=== PATIENT | male | born 1960 | race Caucasian/White ===

== ENCOUNTER → 2020-03-26 10:25 | Outpatient (CLI) | payer OTHER, SELFPAY ==
[2020-03-27 13:07] LABS: COVID19 Sendout Not Detected (Not Detect)
== END ==
PROVIDERS: PCP Physician Assistant; Visit Provider Physician Assistant
DX: Z11.59 Encounter for screening for other viral diseases (principal)
CPT/HCPCS: 87635

== ENCOUNTER → 2021-08-20 13:04 | Outpatient (CLI) | payer OTHER, SELFPAY ==
--- NOTE | 2021-08-20 | DI.MRI.S_ITS ---
PROCEDURE: MR CERVICAL SPINE WO CON INDICATIONS: Cervicalgia TECHNIQUE: Noncontrast sagittal T1 spin echo and T2 fast spin echo, sagittal STIR, foraminal oblique sagittal T2 fast spin echo, and axial gradient echo or T2 fast spin echo through the cervical spine. COMPARISON: None. FINDINGS: Image quality: Partially degraded by motion artifact. Alignment and Curvature: There is loss of normal cervical lordosis. Mild grade 1 retrolisthesis C6 on C7. Bone Marrow: Marrow demonstrates normal overall signal. Mild reactive signal throughout the endplates of the cervical and upper thoracic spine. Spinal Cord: Visualized spinal cord has normal size and signal. No cerebellar tonsillar herniation. Paraspinous Soft Tissues: No paravertebral masses. Prevertebral soft tissues are normal in thickness. C2-C3: Congenital canal stenosis. Moderate disc desiccation. Mild facet and uncovertebral hypertrophy. Mild canal stenosis. Mild bilateral foraminal stenosis. C3-C4: Congenital canal stenosis. Moderate disc desiccation. Mild diffuse disc bulge. Moderate right and mild left facet and uncovertebral hypertrophy. Moderate canal stenosis. Severe right and moderate left foraminal stenosis. Right C4 nerve root compression. C4-C5: Moderate disc desiccation. Mild diffuse disc bulge. Congenital canal stenosis. Moderate right and mild left facet and uncovertebral hypertrophy. Moderate to severe canal stenosis. Severe right and moderate left foraminal stenosis. Right C5 nerve root compression C5-C6: Congenital canal stenosis. Mild disc height loss and desiccation. Mild diffuse disc bulge with superimposed right paracentral protrusion. Mild facet and uncovertebral hypertrophy. Severe canal stenosis with mild cord flattening. Moderate bilateral foraminal stenosis. C6-C7: Moderate disc height loss and desiccation. Mild diffuse disc bulge. Congenital canal stenosis. Mild facet and uncovertebral hypertrophy bilaterally. Moderate to severe canal stenosis. Minimal cord flattening. Moderate right and severe left foraminal stenosis. Left C7 nerve root compression. C7-T1: Mild disc height loss and desiccation. Mild diffuse disc bulge. Mild facet and uncovertebral hypertrophy bilaterally. Mild canal stenosis. Mild bilateral foraminal stenosis. IMPRESSION: 1. Diffuse congenital canal stenosis with superimposed disc and facet disease, as well as uncovertebral hypertrophy. 2. Multilevel canal stenoses, worst at C5-C6 and C6-C7, where there is minimal cord flattening. Moderate to severe canal stenosis at C4-C5 is present. 3. Multilevel foraminal stenoses, worst at C3-C4, C4-C5, and C6-C7, where there is intraforaminal nerve root compression. Recommend correlation with clinical symptoms to ascertain relevance of these findings. Dictated by: Precious White M.D. on 08/20/2021 at 15:10 Approved by: Precious White M.D. on 08/20/2021 at 16:58
== END ==
PROVIDERS: PCP Physician Assistant; Referring Provider Physical Medicine & Rehabilitation Pain Medicine; Visit Provider Physical Medicine & Rehabilitation Pain Medicine
DX: M48.02 Spinal stenosis, cervical region (principal); M50.21 Other cervical disc displacement, high cervical region; M47.812 Spondylosis without myelopathy or radiculopathy, cervical region
CPT/HCPCS: 72141

== ENCOUNTER 2024-03-23 09:42 | Emergency (ER) | payer OTHER, SELFPAY ==
[2024-03-23] VITALS (14 sets, daily range): BP systolic 134–154; BP diastolic 71–84; PULSE 61–88; RESP 16–18; TEMP 36.4; O2SAT 96–100; BMI 23.0
--- NOTE | 2024-03-23 11:29 | DI.MRI.S_ITS ---
PROCEDURE: MR HEAD/BRAIN WO/W CON INDICATIONS: Extreme right-sided head discomfort and pain neck injury, un TECHNIQUE: Noncontrast axial T1 spin echo, axial T2 fast spin echo, sagittal and axial FLAIR, coronal T2 fast spin echo, axial gradient echo, axial diffusion and ADC through the brain. After the administration of contrast, axial and coronal and sagittal T1 spin echo with fat saturation through the brain. COMPARISON: [facility], MR, MR CERVICAL SPINE WO CON, 03/23/2024, 12:01. FINDINGS: Image quality: Diagnostic, with note made of motion artifact. CSF spaces: Basal cisterns are patent. No extra-axial fluid collections. Ventricles are normal in size and shape. Brain: No midline shift. No intracranial bleeds or masses. No abnormal intracranial enhancement. There is cerebral volume loss for age. There is periventricular white matter chronic small vessel ischemic change. The brainstem appears normal. Diffusion-weighted images demonstrate no acute infarct. No chronic ischemic insults. Normal intravascular flow voids are present. Skull and face: Calvarial marrow is normal in signal. Orbits appear normal. Sinuses: There is mild mucosal thickening within the right maxillary sinus. Sinuses and mastoids otherwise appear clear. IMPRESSION: No findings of acute or subacute infarction can be seen. No masses or abnormal enhancement can be seen. No acute intracranial process is seen. No acute intracranial hemorrhage is seen. Dictated by: Klaus Rajan M.D. on 03/23/2024 at 12:29 Approved by: Klaus Rajan M.D. on 03/23/2024 at 12:30
--- NOTE | 2024-03-23 11:29 | DI.MRI.S_ITS ---
PROCEDURE: MR CERVICAL SPINE WO CON INDICATIONS: Severe headache, unequal pupils. TECHNIQUE: Noncontrast sagittal T1 spin echo and T2 fast spin echo, sagittal STIR, foraminal oblique sagittal T2 fast spin echo, and axial gradient echo or T2 fast spin echo through the cervical spine. COMPARISON: [facility], MR, MR HEAD/BRAIN WO/W CON, 03/23/2024, 12:17. [facility], MR, MR CERVICAL SPINE WO CON, 08/20/2021, 13:26. FINDINGS: Image quality: Excellent. Alignment and Curvature: There is straightening of the normal cervical lordosis. No focal AP alignment abnormality is seen. Bone Marrow: Marrow demonstrates normal overall signal. Spinal Cord: Visualized spinal cord has normal size and signal. No cerebellar tonsillar herniation. Paraspinous Soft Tissues: No paravertebral masses. Prevertebral soft tissues are normal in thickness. C2-C3: The disc height is well-preserved. Loss of disc signal is seen at this level. A mild degree of generalized disc osteophyte complex is seen. Mild facet joint hypertrophy is seen. There is mild right-sided and no left-sided neural foraminal narrowing. No significant central canal narrowing is seen. When comparison is made with the prior images, these findings are similar. C3-C4: The disc height is well-preserved. Loss of disc signal is seen at this level. Mild to moderate disc osteophyte complex is seen, which is eccentric to the right. There is at least moderate right-sided and moderate left-sided facet hypertrophy. There is moderate to severe right-sided and there is moderate left-sided neural foraminal narrowing. No significant central canal narrowing is seen at this level. There is slight progression compared to the prior. C4-C5: The disc height is well-preserved. Loss of disc signal is seen at this level. Mild to moderate disc osteophyte complex is seen. At least moderate facet hypertrophy can be seen. There is at least moderate bilateral neural foraminal narrowing seen. Mild central canal narrowing is seen, with mild mass effect upon the ventral spinal cord. These imaging findings have progressed compared to the prior study. C5-C6: Mild loss of disc height is seen. Loss of disc signal is seen. Moderate generalized disc osteophyte complex is seen. There is a mild central/right disc osteophyte protrusion. There is at least moderate right-sided and moderate left-sided facet hypertrophy. There is at least moderate bilateral neural foraminal narrowing, right worse than left. Mild to moderate central canal narrowing is seen, with mild mass effect upon the ventral spinal cord. Compared to 202, the previously seen disc protrusion is slightly regressed. However, the overall degree of central canal narrowing appears worse than on the prior examination. C6-C7: Moderate loss of disc height is seen. Loss of disc signal is seen. Moderate generalized disc osteophyte complex is seen. Moderate facet joint hypertrophy is seen. There is moderate to severe left-sided and at least moderate right-sided neural foraminal narrowing. Moderate central canal narrowing is seen. When comparison is made with the prior images, these findings are similar. C7-T1: The disc height and disk signal are well-preserved. A mild degree of generalized disc osteophyte complex is seen. [id number] facet hypertrophy is seen. There is moderate left-sided and no right-sided neural foraminal narrowing. No central canal narrowing is seen. When comparison is made with the prior images, these findings are similar. IMPRESSION: No jacqueline acute abnormality is seen. Multiple levels of cervical spine degenerative change can be seen, which are overall mildly progressed compared to the 2021 examination. Dictated by: Klaus Rajan M.D. on 03/23/2024 at 12:24 Approved by: Klaus Rajan M.D. on 03/23/2024 at 12:29
--- NOTE | 2024-03-23 11:43 | ED_ITS ---
HPI - Neck Pain/Injury <Emily Osorio PA-C - Last Filed: 03/24/24 10:44> General Chief Complaint: Neck Pain/Injury Stated Complaint: Nerve pain in neck . Time Seen by Provider: 03/23/24 11:13 History of Present Illness HPI Narrative: Patient is a very pleasant 63-year-old male that presents to the emergency room department today with his . Patient has a extensive history of neck related issues. Previous C3 fracture, was in a halo for an extended period of time no surgical intervention due to a skiing accident. Patient states it he does have flare-ups of discomfort and pain associated musculoskeletal tenderness, stiffness, limited range of motion with then discomfort and pain across his aponeurosis into his scalp, causing quite a bit of discomfort and pain. He usually treats this discomfort and pain with modality of muscle relaxers, topica l preparations, oral medications, massage slow range of motion, ice, heat. He also recently has been seen and had trigger point injections which he states did not help with the discomfort and pain. He says that he is very sensitive to nonsteroidals so tends not to use oral nonsteroidals. He has never had a course of prednisone. The patient states that on Monday of this week he went in for an endoscopy, he advised them that he had neck issues and had had a previous neck injury and ask them to be extremely careful of the positioning of his neck during the procedure. He feels that perhaps they did not positioned correctly and since Monday he has had extreme right-sided neck discomfort and pain along the trapezius area into the aponeurosis, down into the sternocleidomastoid muscle. This is comfort and pain has escalated even know he has used all of his home modalities with limited relief. Initially the pain was a 6/10, now currently it has a 12 due to the fact that he is in tears. He has lancing pain along his neck and into the back of his scalp underneath his right ear and into the right side of his face. Patient has a history of glaucoma, but has never had unequal pupils and today he has unequal pupils. Patient denies any type of recent injury, trauma or fall. He denies any blurred vision, or changes in his vision. He does advocate for being unstable in his gait. His denies any recent falls, syncope, changes in his mentation, or slurred speech. The patient has been mildly nauseous. No vomiting, no diarrhea, no urinary symptoms. No weakness, numbness or tingling to the upper or lower extremities. No weakness to the extremities. His medications have been reviewed, his allergies have been reviewed. Related Data Home Medications Medication Instructions Recorded Confirmed latanoprost 0.005 % eye drops 1 drp EYE-LEFT ONCE PM 03/23/24 03/23/24 loratadine 10 mg tablet 10 mg PO DAILY 03/23/24 03/23/24 rabeprazole 20 mg tablet,delayed 20 mg PO DAILY 03/23/24 03/23/24 release timolol maleate 0.5 % eye drops drp EYE-BOTH 03/23/24 03/23/24 Allergies Allergy/AdvReac Type Severity Reaction Status Date / Time erythromycin base Allergy Verified 03/23/24 10:10 NSAIDS (Non-Steroidal AdvReac Verified 03/23/24 10:10 Anti-Inflamma zolpidem [From Ambien] AdvReac Verified 03/23/24 11:45 Review of Systems <Emily Osorio PA-C - Last Filed: 03/24/24 10:44> Review of Systems Narrative: Negative except as above Eyes Comments: Pain behind the right eye Lancing pain across the right side of the face ENT Comments: Pain across the right side of his face Musculoskeletal Comments: Pain in the right side of his neck, right trapezius, right sternocleidomastoid muscle, right side of his aponeurosis and fascia into his scalp and into his head and neck. Neurologic Comments: Headache and pain across the right side of his head and scalp and behind his right ear Exam <Emily Osorio PA-C - Last Filed: 03/24/24 10:44> Initial Vital Signs Initial Vital Signs: Vital Signs Temperature 97.6 F 03/23/24 10:05 Pulse Rate 61 03/23/24 10:05 Respiratory Rate 16 03/23/24 10:05 Blood Pressure 139/81 03/23/24 10:05 Pulse Oximetry 96 03/23/24 10:05 Oxygen Delivery Method Room Air 03/23/24 10:05 Reviewed Const General: cooperative, healthy appearing, acute distress, in distress and anxious [facility] Head: normal to inspection, normocephalic, atraumatic, No abrasion, No hematoma, scalp tenderness and No periorbital ecchymosis Ears: hearing grossly normal bilaterally, external ears normal, mastoids normal, no periauricular adenopathy and no external ear abnormalities Eyes General: Yes appearance normal, both eyes and all related structures Conjunctivae: other (Red and irritated) Pupils: irregular and pupil size (The left side is 2 mm and slow to react, the right side is 3 mm and slow to) Neck Neck: normal visual inspection, No full ROM (Pain with palpation and range of motion), supple, No anterior neck swelling, No lymphadenopathy, No midline defor mity, tender, No submandibular swelling and other (Pain over the sternocleidomastoid muscle and trapezius and along the jawlin) Resp Auscultation: clear to auscultation bilaterally, no crackles, lung sounds not diminished, no rales, no rhonchi, no wheezes and no rubs Tactile Fremitus: tactile fremitus absent Cardio Rate: regular rate Rhythm: regular rhythm Heart Sounds: S1 normal and S2 normal Back/Spine/Pelvis Cervical Spine: No cervical ROM normal (Decreased due to discomfort and pain), pain with cervical ROM, cervical spasm, No step off deformity and cervical ROM abnormal (Due to pain) Skin Other: Warm pink and dry Neuro General: patient alert, patient awake, patient oriented x3, oriented and no meningeal signs Cognition: normal cognition Speech: speech normal Gait: normal gait Extrem Other: Range of motion, strength, pulses, cap refill in the upper and lower extremities is preserved. NIH score 0 Psych Other: Patient's appearance, mental status, speech, movement, mood, affect, attitude, thought process, thought content, judgment is all within normal limits. <Kit Altamirano MD - Last Filed: 03/31/24 02:41> Initial Vital Signs Initial Vital Signs: Vital Signs Temperature 97.6 F 03/23/24 10:05 Pulse Rate 61 03/23/24 10:05 Respiratory Rate 16 03/23/24 10:05 Blood Pressure 139/81 03/23/24 10:05 Pulse Oximetry 96 03/23/24 10:05 Oxygen Delivery Method Room Air 03/23/24 10:05 <Ann Bray DO - Last Filed: 03/24/24 00:54> Initial Vital Signs Initial Vital Signs: Vital Signs Temperature 97.6 F 03/23/24 10:05 Pulse Rate 61 03/23/24 10:05 Respiratory Rate 16 03/23/24 10:05 Blood Pressure 139/81 03/23/24 10:05 Pulse Oximetry 96 03/23/24 10:05 Oxygen Delivery Method Room Air 03/23/24 10:05 Scores <Emily Osorio PA-C - Last Filed: 03/24/24 10:44> NIH Stroke Scale Citation:: 0 Course <Emily Osorio PA-C - Last Filed: 03/24/24 10:44> Orders Ordered: Discontinued Medications Hydrocodone Bitart/Acetaminophen (Hydrocodone/Acet 5/325 Tablet) 1 tab PO NOW ONE Stop: 03/23/24 18:58 Last Admin: 03/23/24 19:00 Dose: 1 tab Documented By: HARJINDER Acetazolamide (Acetazolamide 250 Mg Tablet) 500 mg PO NOW ONE Stop: 03/23/24 18:28 Last Admin: 03/23/24 18:57 Dose: 500 mg Documented By: HARJINDER Fluorescein Sodium (Fluorescein 1 Mg Strip) 1 mg EYE-BOTH NOW ONE Stop: 03/23/24 17:12 Last Admin: 03/23/24 17:16 Dose: 1 mg Documented By: HARJINDER Hydromorphone HCl (Hydromorphone 1 Mg Inj) 0.5 mg IV NOW ONE Stop: 03/23/24 11:35 Last Admin: 03/23/24 11:50 Dose: 0.5 mg Documented By: MAGAN Hydromorphone HCl (Hydromorphone 1 Mg Inj) 0.5 mg IV NOW ONE Stop: 03/23/24 14:53 Last Admin: 03/23/24 15:02 Dose: 0.5 mg Documented By: HARJINDER Ondansetron HCl (Ondansetron 4 Mg/2 Ml Inj) 4 mg IV NOW ONE Stop: 03/23/24 11:35 Last Admin: 03/23/24 11:50 Dose: 4 mg Documented By: MAGAN Ondansetron HCl (Ondansetron 4 Mg/2 Ml Inj) 4 mg IV NOW ONE Stop: 03/23/24 18:13 Last Admin: 03/23/24 18:19 Dose: 4 mg Documented By: HARJINDER Proparacaine HCl (Proparacaine 0.5% Ophth Yadi) 1 drops EYE-BOTH NOW ONE Stop: 03/23/24 17:12 Last Admin: 03/23/24 17:16 Dose: 1 drop Documented By: HARJINDER Vital Signs Vital signs: Vital Signs - 8 hr 03/23/24 17:00 03/23/24 17:00 03/23/24 17:30 Pulse Rate 68 67 Blood Pressure 150/84 H Pulse Oximetry 100 98 03/23/24 17:30 03/23/24 18:00 03/23/24 18:00 Pulse Rate 74 Blood Pressure 153/79 H 149/80 H Pulse Oximetry 100 03/23/24 18:12 03/23/24 18:12 03/23/24 18:30 Pulse Rate 88 76 Blood Pressure 147/74 H Pulse Oximetry 96 99 03/23/24 18:30 03/23/24 19:00 Pulse Rate Blood Pressure 134/71 Pulse Oximetry 99 Reviewed <Kit Altamirano MD - Last Filed: 03/31/24 02:41> Orders Ordered: Discontinued Medications Hydrocodone Bitart/Acetaminophen (Hydrocodone/Acet 5/325 Tablet) 1 tab PO NOW ONE Stop: 03/23/24 18:58 Last Admin: 03/23/24 19:00 Dose: 1 tab Documented By: HARJINDER Acetazolamide (Acetazolamide 250 Mg Tablet) 500 mg PO NOW ONE Stop: 03/23/24 18:28 Last Admin: 03/23/24 18:57 Dose: 500 mg Documented By: HARJIDNER Fluorescein Sodium (Fluorescein 1 Mg Strip) 1 mg EYE-BOTH NOW ONE Stop: 03/23/24 17:12 Last Admin: 03/23/24 17:16 Dose: 1 mg Documented By: HARJINDER Hydromorphone HCl (Hydromorphone 1 Mg Inj) 0.5 mg IV NOW ONE Stop: 03/23/24 11:35 Last Admin: 03/23/24 11:50 Dose: 0.5 mg Documented By: MAGAN Hydromorphone HCl (Hydromorphone 1 Mg Inj) 0.5 mg IV NOW ONE Stop: 03/23/24 14:53 Last Admin: 03/23/24 15:02 Dose: 0.5 mg Documented By: HARJINDER Ondansetron HCl (Ondansetron 4 Mg/2 Ml Inj) 4 mg IV NOW ONE Stop: 03/23/24 11:35 Last Admin: 03/23/24 11:50 Dose: 4 mg Documented By: MAGAN Ondansetron HCl (Ondansetron 4 Mg/2 Ml Inj) 4 mg IV NOW ONE Stop: 03/23/24 18:13 Last Admin: 03/23/24 18:19 Dose: 4 mg Documented By: HARJINDER Proparacaine HCl (Proparacaine 0.5% Ophth Yadi) 1 drops EYE-BOTH NOW ONE Stop: 03/23/24 17:12 Last Admin: 03/23/24 17:16 Dose: 1 drop Documented By: HARJINDER Vital Signs Vital signs: Vital Signs - 8 hr 03/23/24 17:00 03/23/24 17:00 03/23/24 17:30 Pulse Rate 68 67 Blood Pressure 150/84 H Pulse Oximetry 100 98 03/23/24 17:30 03/23/24 18:00 03/23/24 18:00 Pulse Rate 74 Blood Pressure 153/79 H 149/80 H Pulse Oximetry 100 03/23/24 18:12 03/23/24 18:12 03/23/24 18:30 Pulse Rate 88 76 Blood Pressure 147/74 H Pulse Oximetry 96 99 03/23/24 18:30 03/23/24 19:00 Pulse Rate Blood Pressure 134/71 Pulse Oximetry 99 <Ann Bray, - Last Filed: 03/24/24 00:54> Orders Ordered: Discontinued Medications Hydrocodone Bitart/Acetaminophen (Hydrocodone/Acet 5/325 Tablet) 1 tab PO NOW ONE Stop: 03/23/24 18:58 Last Admin: 03/23/24 19:00 Dose: 1 tab Documented By: HARJINDER Acetazolamide (Acetazolamide 250 Mg Tablet) 500 mg PO NOW ONE Stop: 03/23/24 18:28 Last Admin: 03/23/24 18:57 Dose: 500 mg Documented By: HARJINDER Fluorescein Sodium (Fluorescein 1 Mg Strip) 1 mg EYE-BOTH NOW ONE Stop: 03/23/24 17:12 Last Admin: 03/23/24 17:16 Dose: 1 mg Documented By: HARJINDER Hydromorphone HCl (Hydromorphone 1 Mg Inj) 0.5 mg IV NOW ONE Stop: 03/23/24 11:35 Last Admin: 03/23/24 11:50 Dose: 0.5 mg Documented By: MAGAN Hydromorphone HCl (Hydromorphone 1 Mg Inj) 0.5 mg IV NOW ONE Stop: 03/23/24 14:53 Last Admin: 03/23/24 15:02 Dose: 0.5 mg Documented By: HARJINDER Ondansetron HCl (Ondansetron 4 Mg/2 Ml Inj) 4 mg IV NOW ONE Stop: 03/23/24 11:35 Last Admin: 03/23/24 11:50 Dose: 4 mg Documented By: MAGAN Ondansetron HCl (Ondansetron 4 Mg/2 Ml Inj) 4 mg IV NOW ONE Stop: 03/23/24 18:13 Last Admin: 03/23/24 18:19 Dose: 4 mg Documented By: HARJINDER Proparacaine HCl (Proparacaine 0.5% Ophth Yadi) 1 drops EYE-BOTH NOW ONE Stop: 03/23/24 17:12 Last Admin: 03/23/24 17:16 Dose: 1 drop Documented By: HARJINDER Vital Signs Vital signs: Vital Signs - 8 hr 03/23/24 17:00 03/23/24 17:00 03/23/24 17:30 Pulse Rate 68 67 Blood Pressure 150/84 H Pulse Oximetry 100 98 03/23/24 17:30 03/23/24 18:00 03/23/24 18:00 Pulse Rate 74 Blood Pressure 153/79 H 149/80 H Pulse Oximetry 100 03/23/24 18:12 03/23/24 18:12 03/23/24 18:30 Pulse Rate 88 76 Blood Pressure 147/74 H Pulse Oximetry 96 99 03/23/24 18:30 03/23/24 19:00 Pulse Rate Blood Pressure 134/71 Pulse Oximetry 99 MDM - Neck Pain/Injury <Emily Osorio PA-C - Last Filed: 03/24/24 10:44> [facility] Narrative Medical decision making narrative: This patient was initially seen in the [facility] area due to the complexity of the patient's physical complaints and physical exam is and abnormalities associated with his pupillary response in the complex history, I felt the patient needed to have an MRI of his neck, head and brain. Due to the fact that he need an MRI this patient was then transferred over to the main ED. Sign-out was given to the attending. This patient was transferred over to the ED. IV was established and [facility] 4 mg of IV Zofran 0.5 mg of IV Dilaudid for pain MRI with and without of the head and brain MRI of the cervical spine without was ordered Patient then taken to room 6 after his MRI Sign out to Dr. Altamirano <Kit Altamirano MD - Last Filed: 03/31/24 02:41> Imaging Data MRI brain: Radiologist's Impression: [address] [address] Magnetic Resonance Report Signed Patient: Jared Henderson MR#: [id number] : 1960 Acct:[id number] Age/Sex: 63 / M Date of Service: 03/23/24 Loc: ED Accession Number: [id number] Procedure: MR head/brain wo/w con Ordering Provider: Emily Osorio PA-C PROCEDURE: MR HEAD/BRAIN WO/W CON INDICATIONS: Extreme right-sided head discomfort and pain neck injury, un TECHNIQUE: Noncontrast axial T1 spin echo, axial T2 fast spin echo, sagittal and axial FLAIR, coronal T2 fast spin echo, axial gradient echo, axial diffusion and ADC through the brain. After the administration of contrast, axial and coronal and sagittal T1 spin echo with fat saturation through the brain. COMPARISON: [facility], MR, MR CERVICAL SPINE WO CON, 03/23/2024, 12:01. FINDINGS: Image quality: Diagnostic, with note made of motion artifact. CSF spaces: Basal cisterns are patent. No extra-axial fluid collections. Ventricles are normal in size and shape. Brain: No midline shift. No intracranial bleeds or masses. No abnormal intracranial enhancement. There is cerebral volume loss for age. There is periventricular white matter chronic small vessel ischemic change. The brainstem appears normal. Diffusion-weighted images demonstrate no acute infarct. No chronic ischemic insults. Normal intravascular flow voids are present. Skull and face: Calvarial marrow is normal in signal. Orbits appear normal. Sinuses: There is mild mucosal thickening within the right maxillary sinus. Sinuses and mastoids otherwise appear clear. IMPRESSION: No findings of acute or subacute infarction can be seen. No masses or abnormal enhancement can be seen. No acute intracranial process is seen. No acute intracranial hemorrhage is seen. Dictated by: Klaus Rajan M.D. on 03/23/2024 at 12:29 Approved by: Klaus Rajan M.D. on 03/23/2024 at 12:30 MRI cervical spine: Radiologist's Impression: [address] [address] Magnetic Resonance Report Signed Patient: Jared Henderson MR#: [id number] : 1960 Acct:[id number] Age/Sex: 63 / M Date of Service: 03/23/24 Loc: ED Accession Number: [id number] Procedure: MR cervical spine wo con Ordering Provider: Emily Osorio PA-C PROCEDURE: MR CERVICAL SPINE WO CON INDICATIONS: Severe headache, unequal pupils. TECHNIQUE: Noncontrast sagittal T1 spin echo and T2 fast spin echo, sagittal STIR, foraminal oblique sagittal T2 fast spin echo, and axial gradient echo or T2 fast spin echo through the cervical spine. COMPARISON: [facility], MR, MR HEAD/BRAIN WO/W CON, 03/23/2024, 12:17. [facility], MR, MR CERVICAL SPINE WO CON, 08/20/2021, 13:26. FINDINGS: Image quality: Excellent. Alignment and Curvature: There is straightening of the normal cervical lordosis. No focal AP alignment abnormality is seen. Bone Marrow: Marrow demonstrates normal overall signal. Spinal Cord: Visualized spinal cord has normal size and signal. No cerebellar tonsillar herniation. Paraspinous Soft Tissues: No paravertebral masses. Prevertebral soft tissues are normal in thickness. C2-C3: The disc height is well-preserved. Loss of disc signal is seen at this level. A mild degree of generalized disc osteophyte complex is seen. Mild facet joint hypertrophy is seen. There is mild right-sided and no left-sided neural foraminal narrowing. No significant central canal narrowing is seen. When comparison is made with the prior images, these findings are similar. C3-C4: The disc height is well-preserved. Loss of disc signal is seen at this level. Mild to moderate disc osteophyte complex is seen, which is eccentric to the right. There is at least moderate right-sided and moderate left-sided facet hypertrophy. There is moderate to severe right-sided and there is moderate left-sided neural foraminal narrowing. No significant central canal narrowing is seen at this level. There is slight progression compared to the prior. C4-C5: The disc height is well-preserved. Loss of disc signal is seen at this level. Mild to moderate disc osteophyte complex is seen. At least moderate facet hypertrophy can be seen. There is at least moderate bilateral neural foraminal narrowing seen. Mild central canal narrowing is seen, with mild mass effect upon the ventral spinal cord. These imaging findings have progressed compared to the prior study. C5-C6: Mild loss of disc height is seen. Loss of disc signal is seen. Moderate generalized disc osteophyte complex is seen. There is a mild central/right disc osteophyte protrusion. There is at least moderate right-sided and moderate left-sided facet hypertrophy. There is at least moderate bilateral neural foraminal narrowing, right worse than left. Mild to moderate central canal narrowing is seen, with mild mass effect upon the ventral spinal cord. Compared to 2021, the previously seen disc protrusion is slightly regressed. However, the overall degree of central canal narrowing appears worse than on the prior examination. C6-C7: Moderate loss of disc height is seen. Loss of disc signal is seen. Moderate generalized disc osteophyte complex is seen. Moderate facet joint hypertrophy is seen. There is moderate to severe left-sided and at least moderate right-sided neural foraminal narrowing. Moderate central canal narrowing is seen. When comparison is made with the prior images, these findings are similar. C7-T1: The disc height and disk signal are well-preserved. A mild degree of generalized disc osteophyte complex is seen. [id number] facet hypertrophy is seen. There is moderate left-sided and no right-sided neural foraminal narrowing. No central canal narrowing is seen. When comparison is made with the prior images, these findings are similar. IMPRESSION: No jacquelnie acute abnormality is seen. Multiple levels of cervical spine degenerative change can be seen, which are o verall mildly progressed compared to the 2021 examination. Dictated by: Klaus Rajan M.D. on 03/23/2024 at 12:24 Approved by: Klaus Rajan M.D. on 03/23/2024 at 12:29 [facility] Narrative Medical decision making narrative: This patient was initially seen in the [facility] area due to the complexity of the patient's physical complaints and physical exam is and abnormalities associated with his pupillary response in the complex history, I felt the patient needed to have an MRI of his neck, head and brain. Due to the fact that he need an MRI this patient was then transferred over to the main ED. Sign-out was given to the attending. This patient was transferred over to the ED. IV was established and [facility] 4 mg of IV Zofran 0.5 mg of IV Dilaudid for pain MRI with and without of the head and brain MRI of the cervical spine without was ordered Patient then taken to room 6 after his MRI Sign out to Dr Altamirano 03/22/2024, 1330, Adarsh. Sign-out from JASMIN Osorio. Sent here from fast track due to complexity of illness and reported need for multiple long-duration imaging studies. MRI brain and cervical spine studies have been ordered. Triage complaint of neck pain. 63-year-old male with history of C3 fracture prior halo, chronic neck pain for which he is treated with oral analgesics and sometimes massage, previous trigger point injections, apparently can not take nonsteroidals, this last Monday patient underwent endoscopy, after the endoscopy had increased neck pain. Since yesterday morning he has right-sided eye tearing and discomfort, history of glaucoma, some cloudy vision since yesterday morning as well. Right pupil dilated compared to the left, apparently this is not usual for the patient, referred to main ED for further evaluation. Assumed care. MRI brain study showed no acute changes, see radiology report MRI cervical spine study showed multilevel degenerative changes, minimal interval progression since 2021, see radiology report Copies of MRI reports given to patient. On my eye examination patient has right-sided pupil about 3-4 mm diameter, not obviously reactive, with conjunctival injection on that side. Left eye noninjected, left pupil 2-3 mm difficult to see reactivity as well given small size. Ocular history as relayed to me by patient: states that he is followed by [facility] at their [place] office, history of bilateral glaucoma, prior right eye LST procedure 2016 was felt to be successful so he has not been using topical glaucoma medications on the right eye. Left eye glaucoma surgeries however were not successful, most recent 2018 on the left eye recalled, uses left eye topical timolol and latanoprost drops on that side only. DDx right eye pain with injection and ipsilateral headache. Consider recurrence glaucoma on symptomatic right eye, iritis, orbital cellulitis, occult trauma, infection, other. Will measure IOPs, check visual acuities. Estrada-Pen eye pressures after topical proparacine, right-sided 45 and 47 measurements, compared to left-sided asymptomatic side 15 and 10 pressures. Will contact Ophthalmology, patient has been treated by [facility] at [place] Visual acuity left eye 20/30, right eye 20/200, both eyes 20/30. 1829, discussed with Ophthalmology Dr Zavala of [facility] in [place], he was able to review their patient review records, no history of glaucoma surgery on that affected eye. Concern for acute closed angle glaucoma in symptomic right eye. Advises oral Diamox 500 mg dose now, would like to see patient tonight at his [place] office. at bedside can drive. Dr Zavala stated that he has the patient cell phone number to further coordinate visit tonight, will meet them at [place] office 730-8pm, he will be looking for their arrival. Diamox 500mg PO given before departure. Will be driven by to eye clinic [facility] directly from ED. Dr. Bray-I did help with Estrada-Pen, but wasn't involved disposition <Ann Bray, - Last Filed: 03/24/24 00:54> [facility] Narrative Medical decision making narrative: This patient was initially seen in the [facility] area due to the complexity of the patient's physical complaints and physical exam is and abnormalities associated with his pupillary response in the complex history, I felt the patient needed to have an MRI of his neck, head and brain. Due to the fact that he need an MRI this patient was then transferred over to the main ED. Sign-out was given to the attending. This patient was transferred over to the ED. IV was established and [facility] 4 mg of IV Zofran 0.5 mg of IV Dilaudid for pain MRI with and without of the head and brain MRI of the cervical spine without was ordered Patient then taken to room 6 after his MRI Sign out to Dr Altamirano 03/22/2024, 1330, Adarsh. Sign-out from JASMIN Osorio. Sent here from fast track due to complexity of illness and need for multiple long-duration imaging studies. MRI brain and cervical spine studies have been ordered. Chart reviewed. 63-year-old male with history of C3 fracture prior halo, chronic neck pain for which he is treated with oral analgesics and sometimes massage, previous trigger point injections, apparently can not take nonsteroidals, this last Wednesday patient underwent endoscopy, after the endoscopy had increased neck pain. Since yesterday he has right-sided eye tearing and discomfort, history of glaucoma, some cloudy vision since yesterday morning as well. Right eye dilated compared to the left, apparently this is not usual for the patient, referred here for further imaging. Assumed care. MRI brain study showed no acute changes, see radiology report MRI cervical spine study showed multilevel degenerative changes, minimal interval progression since 2021, see radiology report Copies of MRI reports given to patient. On my examination patient does have right-sided pupil about 3-4 mm diameter, not obviously reactive, scleral injection on that side. Left eye noninjected, left pupil 2-3 mm difficult to see reactivity as well given small size. Ocular history also quite complex per patient, who states that he is followed by [facility], through practitioners in [place] office, history of bilateral glaucoma, prior right eye LST procedure 2016 was felt to be successful so he has not using topical glaucoma medications on the right side. Left eye glaucoma surgery however not successful, multiple procedures, most recent 2017 recalled, not felt to be completely successful, uses left eye topical timolol and latanoprost drops on that side only. Estrada-Pen eye pressures right-sided 45 and 47 measurements, compared to left- sided asymptomatic side 15 and 10 pressures. We will contact Ophthalmology on- call, patient has been followed by [facility] at [place] Visual acuity left eye 20/30, right eye 20/200, both eyes 20/30. 1830, discussed with Ophthalmology Dr. Zavala of [facility], he was able with their patient review records, no history of glaucoma surgery on that affected eye. Advises oral Diamox 500 mg dose now, would like to see patient tonight at his [place] office, where he we will likely give topical timolol as well. Dr. Medina did help with Estrada-Pen, but wasn't involved disposition Discharge Plan Departure Patient Disposition: Home Clinical Impression: Acute pain in right eye, Glaucoma (increased eye pressure), History of glaucoma, Chronic neck pain Activity Restrictions/Additional Instructions: Right eye pain, history of glaucoma, prior surgeries on both eyes, most recently using eyedrops medications on the left side, right eye pain and blurred vision since yesterday morning. Ocular pressure is elevated on that affected right eye. Visual acuity is worse on the affected right eye. Concern for glaucoma problem. Case discussed with [facility] Dr. Zavala, he would like us to give dose of oral Diamox medication now, he would like to see you in his office this evening in his on his way to the office, expecting to see you there hopefully between 730 and 8:00 a.m., requesting that you go to the left side of the building, had he will look for you. He has your cell phone information. Prescriptions: No Action timolol maleate 0.5 % drops EYE-BOTH latanoprost 0.005 % drops 1 drp EYE-LEFT ONCE PM rabeprazole 20 mg tablet,delayed release (DR/EC) 20 mg PO DAILY loratadine 10 mg tablet 10 mg PO DAILY Referrals: Denver Ferris DO [Primary Care Provider] - Stand Alone Forms: Patient Portal/API
[2024-03-23] MEDS: HYDROMORPHONE 1 MG INJ 0.5 MG IV ×2 (11:50→15:02)
[2024-03-23] MEDS: ONDANSETRON 4 MG/2 ML INJ IV ×2 (11:50→18:19)
--- NOTE | 2024-03-23 15:33 | PC.NURSE ---
Pt has been refusing BP since arrival. Pt also requested we remove her IV, explained it was necessary to keep IV intact. Charge aware. US currently in the room. Will attempt BP once US leaves and prior to Nifedipine administration.
[2024-03-23] MEDS: PROPARACAINE 0.5% OPHTH SOL 1 DROPS EYE-BOTH (17:16)
[2024-03-23] MEDS: FLUORESCEIN 1 MG STRIP EYE-BOTH (17:16)
--- NOTE | 2024-03-23 18:06 | PC.NURSE ---
Called [facility] at request of Dr. Bray @[phone]. After hours answering service with [facility] paged yardage control clerk physician @[phone].
[2024-03-23] MEDS: acetaZOLAMIDE 250 MG TABLET 500 MG PO (18:57)
[2024-03-23] MEDS: HYDROCODONE/ACET 5/325 TABLET 1 TAB PO (19:00)
== END 2024-03-23 19:06 | disposition home or self-care (01) ==
PROVIDERS: Emergency Provider Emergency Medicine; PCP Family Medicine
DX: H57.11 Ocular pain, right eye (principal); H40.9 Unspecified glaucoma; M54.2 Cervicalgia; R51.9 Headache, unspecified; R03.0 Elevated blood-pressure reading, without diagnosis of hypertension
CPT/HCPCS: 36415; 70553; 72141; 96374; 96375; 96376; 99285; A9579; J1171; J2405

== ENCOUNTER → 2024-11-06 09:01 | Outpatient (CLI) | payer MEDICARE, OTHER, SELFPAY ==
[2024-11-06 10:35] LABS: Alanine Aminotransferase 26 IU/L (<50); Albumin 4.5 g/dL (3.5-5.0); Albumin Globulin Ratio 1.6 (1.0-2.8); Alkaline Phosphatase 58 U/L (38-126); Aspartate Aminotransferase 32 IU/L (17-59); BUN Creatinine Ratio 23.9 (6-22); Bilirubin Total 1.3 mg/dL (0.2-1.3); Blood Urea Nitrogen 22 mg/dL (9-20); Calcium 9.3 mg/dL (8.4-10.2); Carbon Dioxide 30 mmol/L (22-32); Chloride 100 mmol/L (98-107); Cholesterol 277 mg/dL (140-199); Estimated Glomerular Filt Rate > 60 mL/min (>60); Globulin 2.9 g/dL (1.7-4.1); Glucose 92 mg/dL (70-99); HDL Cholesterol 79 mg/dL (40-60); HEMOLYSIS < 15 (0-50); LDL Cholesterol Calculated 184 mg/dL (<100); Potassium 4.4 mmol/L (3.4-5.1); Sodium 136 mmol/L (137-145); Total Protein 7.4 g/dL (6.3-8.2); Triglycerides 72 mg/dL (35-150)
[2024-11-06 11:06] LABS: Prostate Specific Antigen Scrn 1.48 ng/mL (0.1-4.0)
[2024-11-06 11:08] LABS: Vitamin D 25 Hydroxy (D3) 43.1 ng/mL (30.0-100.0)
[2024-11-07 04:39] LABS: CRP, High Sensitivity 1.44 mg/L (0.00-3.00)
== END ==
PROVIDERS: PCP Family Medicine; Referring Provider Family Medicine; Visit Provider Family Medicine
DX: Z00.00 Encounter for general adult medical examination without abnormal findings (principal); Z12.5 Encounter for screening for malignant neoplasm of prostate; E55.9 Vitamin D deficiency, unspecified; Z13.220 Encounter for screening for lipoid disorders
CPT/HCPCS: 36415; 80053; 80061; 82306; 86140; G0103

== ENCOUNTER → 2024-11-19 15:40 | Outpatient (CLI) | payer MEDICARE, OTHER, SELFPAY ==
--- NOTE | 2024-11-19 15:42 | DI.MRI.S_ITS ---
PROCEDURE: MR CERVICAL SPINE WO CON INDICATIONS: WORSENING CHRONIC NECK PAIN TECHNIQUE: Noncontrast sagittal T1 spin echo and T2 fast spin echo, sagittal STIR, foraminal oblique sagittal T2 fast spin echo, and axial gradient echo or T2 fast spin echo through the cervical spine. COMPARISON: [facility], MR, MR CERVICAL SPINE WO CON, 03/23/2024, 12:01. FINDINGS: Image quality: Excellent. Alignment and Curvature: There is normal bony alignment. Bone Marrow: Marrow demonstrates normal overall signal. Spinal Cord: Visualized spinal cord has normal size and signal. No cerebellar tonsillar herniation. Paraspinous Soft Tissues: No paravertebral masses. Prevertebral soft tissues are normal in thickness. The combination of disc bulging with endplate spurring facet arthropathy and ligamentum flavum hypertrophy result in the following: C2-C3: Mild right foraminal stenosis. C3-C4: Moderate right and mild left foraminal stenosis without central canal stenosis. C4-C5: Moderate right and mild left foraminal stenosis with mild central canal stenosis. C5-C6: Mild bilateral foraminal stenosis with mild central canal stenosis. C6-C7: Moderate right and mild left foraminal stenosis. C7-T1: Normal appearance. IMPRESSION: Multilevel degenerative disc disease results in varying degrees of central canal and foraminal stenosis and is not significantly changed from prior imaging in 2023. Dictated by: Alix Trinh M.D. on 11/19/2024 at 16:42 Approved by: Alix Trinh M.D. on 11/19/2024 at 17:04
--- NOTE | 2024-11-19 15:42 | DI.MRI.S_ITS ---
PROCEDURE: MR THORACIC SPINE WO CON INDICATIONS: WORSENING CHRONIC NECK PAIN TECHNIQUE: Noncontrast sagittal T1 spine echo and T2 fast spin echo, sagittal STIR, and T2 fast spin echo through the thoracic spine. COMPARISON: [facility] [place], CR, XR THORACIC SPINE 2 VIEWS, 11/02/2021, 11:00. [facility], MR, MR CERVICAL SPINE WO CON, 11/19/2024, 15:45. FINDINGS: Image quality: Excellent. Alignment and Curvature: There is normal bony alignment. Bone Marrow: Marrow is of normal overall signal. No acute vertebral body compression fractures. Spinal Cord: Visualized spinal cord is normal in size and signal. Paraspinous Soft Tissues: No paravertebral masses. Miscellaneous: At the T7-T8 level, there is mild disc space narrowing. There is a central/right disc protrusion, with minimal central canal narrowing and minimal mass effect upon the ventral spinal cord. No neural foraminal narrowing can be seen at this level. A few levels of mild neural foraminal narrowing can be seen within the mid to lower thoracic spine. Milder degenerative changes are seen elsewhere. IMPRESSION: Focal central/right disc protrusion seen at T7-T8, with mild mass effect upon the ventral spinal cord. Dictated by: Klaus Rajan M.D. on 11/19/2024 at 17:32 Approved by: Klaus Rajan M.D. on 11/19/2024 at 17:35
== END ==
PROVIDERS: PCP Family Medicine; Referring Provider Family Medicine; Visit Provider Family Medicine
DX: M47.812 Spondylosis without myelopathy or radiculopathy, cervical region (principal); M50.31 Other cervical disc degeneration, high cervical region; M48.02 Spinal stenosis, cervical region; M51.14 Intervertebral disc disorders with radiculopathy, thoracic region; M48.04 Spinal stenosis, thoracic region; R29.898 Other symptoms and signs involving the musculoskeletal system; Z87.81 Personal history of (healed) traumatic fracture
CPT/HCPCS: 72141; 72146